=== PATIENT | female | born 1930 | race Caucasian/White ===

== ENCOUNTER → 2016-08-10 | Outpatient (CLI) | payer OTHER ==
--- NOTE | 2016-08-10 13:25 | MA ---
Screening Digital Mammogram With iCAD Analysis Clinical Indications: Routine screening. A sister was diagnosed with breast cancer in her 60s. The pa tient has had left breast cancer treated with lumpectomy. Technique: Standard cephalocaudal projections are obtained. Digital breast tomosynthesis was performe d in the MLO projection with reconstruction at 1.0 mm slice thickness and composite MLO views reconst ructed. A skin marker is placed on left breast lumpectomy scar. This examination is processed by the iCAD computer aided detection system. Comparison: October 2015, August 2015, August 2014, July 2013, July 2012, July 2011, Decem 2009, June 2009. Breast density: Type B; Scattered fibroglandular densities. Findings: CAD was reviewed. No masses, suspicious calcifications or secondary signs of malignancy are seen. There has been no significant change in the appearance of either breast. Vascular calcificati ons are noted. Impression: Negative mammogram. BI-RADS 1. Recommendation: Routine mammographic screening in one year as long as physical examination is negativ [email or web address] [facility]. Negative mammography should not preclude additional workup of a clinically suspicious finding. The patient's information is entered into a reminder system with a target due date for her next mammo gram.
== END ==
LOC: FIMAGING 10:12
DX: Z12.31 Encounter for screening mammogram for malignant neoplasm of breast (principal); Z80.3 Family history of malignant neoplasm of breast; Z85.3 Personal history of malignant neoplasm of breast
CPT/HCPCS: G0202

== ENCOUNTER 2017-08-04 12:11 | Observation (INO) | payer OTHER ==
[2017-08-04] MEDS ORDERED: IOPAMIDOL (ISOVUE-300) 100 ML BTL ONE (12:22)
[2017-08-04] MEDS ORDERED: BUPIVACAINE 0.5% 30 ML SDV ONE (15:15)
[2017-08-04] MEDS ORDERED: HYDROmorphONE/DILAUDID 1 MG/ML INJ IVP PRN ×2 (15:33→15:56)
[2017-08-04] MEDS ORDERED: OXYCODONE/APAP 5/325 TAB PO PRN ×2 (15:33→15:56)
[2017-08-04] MEDS ORDERED: ONDANSETRON 4 MG/2 ML VIAL IVP PRN ×2 (15:33→15:56)
--- NOTE | 2017-08-04 15:38 | PDGENHP ---
History & Physical Chief Complaint: RIGHT LOWER QUADRANT PAIN History of Present Illness: 87-YEAR-OLD FEMALE WITH RIGHT LOWER QUADRANT PAIN OF [address] SCAN SHOWS APPENDICITIS WAS POSSIBLE EARLY PERFORATION. ADMITTED AT THIS TIME FOR LAP APPENDECTOMY. RISKS AND OPTIONS BEEN FULLY DISCUSSED SHE WISHES TO PROCEED Pertinent Past, Social, Family History: PAST MEDICAL HISTORY REVEALS NO MAJOR MEDICAL ISSUES AND NO PRIOR ABDOMINAL SURGERIES. FAMILY HISTORY NONCONTRIBUTORY. ALLERGIES NONE. MEDICATIONS LEVOTHYROXINE. REVIEW OF SYSTEMS IS NEGATIVE ON A FULL 10 POINT REVIEW OF SYSTEMS EXCEPT RELATED TO THE HPI AND HYPO THYROIDISM. SHE DOES NOT SMOKE Relevant Physical Exam: GENERAL: HEALTHY 87-YEAR-OLD FEMALE NO ACUTE DISTRESS, AFEBRILE. CHEST CLEAR. COR REGULAR RHYTHM. ABDOMEN SOFT, SLIGHTLY DISTENDED WITH BOWEL SOUNDS. TENDER IN THE RIGHT LOWER QUADRANT. EXTREMITIES FULL RANGE OF MOTION, FULL PULSES Cardiorespiratory Assessment: IMPRESSION ACUTE APPENDICITIS. PLAN LAP APPY/ RISKS AND OPTIONS FULLY DISCUSSED
[2017-08-04] MEDS ORDERED: ERTAPENEM 1 GM VIAL IV ONE (15:44)
[2017-08-04] MEDS ORDERED: D5W 1/2 NS W/ 20 KCl/L 1,000 ML IV SCH (15:45)
[2017-08-04] MEDS ORDERED: ACETAMINOPHEN 500 MG TAB PO PRN (15:56)
[2017-08-04] MEDS ORDERED: ALBUTEROL 3 ML DEYVIAL IH PRN (15:56)
[2017-08-04] MEDS ORDERED: NALOXONE HCL 0.4 MG/ML INJ IVP PRN (15:56)
--- NOTE | 2017-08-04 15:56 | PDANEPAE ---
ANE History of Present Illness Lap Appendectomy ANE Past Medical History - Cardiovascular History Hx Hypertension: Yes Hx Arrhythmias: No Hx Coronary Artery / Peripheral Vascular Disease: No Hx CHF / Valvular Disease: No - Pulmonary History Hx COPD: No Hx Asthma/Reactive Airway Disease: No Hx Recent Upper Respiratory Infection: No Hx Oxygen in Use at Home: No Hx Sleep Apnea: No Pulmonary History Comment: GETS COUGH WITH SENSITIVITY TO PERFUMES AND WIND - Neurologic History Hx Cerebrovascular Accident: No Hx Seizures: No Hx Dementia: No - Endocrine History Hx Diabetes: No Endocrine History Comment: HYPOTHYROID ON LEVOXYL - Renal History Hx Renal Disorders: No - Liver History Hx Hepatic Disorders: No - Neurological & Psychiatric Hx Hx Neurological and Psychiatric Disorders: No - Cancer History Hx Cancer: Yes Cancer History Comment: 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 R & L bunionectomy ANE Review of Systems Review of Systems: ANE Patient History - Allergies Allergies/Adverse Reactions: No Known Allergies Allergy (Verified 08/21/15 12:55) - Home Medications Home Medications: Acetamn/Diphenhydramine 500/25 [Tylenol PM (*)] 1 each PO HS PRN 02/26/14 [Last Taken Unknown] Aspirin [Aspirin 81mg (OTC)] 81 mg PO DAILY 02/26/14 [Last Taken Unknown] Calcium Carbonate/Vitamin D3 [CALCIUM 600 + VIT D TABLET] 2 each PO DAILY [Last Taken Unknown] Cholecalciferol Vit D3 [Vitamin D3 (OTC)] 1,000 units PO DAILY 02/26/14 [Last Taken Unknown] Glucosamine Sulfate Dipot Chlr [Glucosamine] 1,000 mg PO DAILY 02/26/14 [Last Taken Unknown] Herbals/Supplements -Info Only 1 ea PO DAILY 02/26/14 [Last Taken Unknown] Levothyroxine [Synthroid 50 mcg (*)] 50 mcg PO DAILY@06 02/26/14 [Last Taken Unknown] MAGNESIUM [Magnesium Oxide 200 mg] 1 tab PO DAILY 02/26/14 [Last Taken Unknown] Multivitamins [Tab-A-Romelia] 1 each PO DAILY 02/26/14 [Last Taken Unknown] [place]-3 Fatty Acids/Fish Oil [Fish Oil 1,000 mg Capsule] 1 each PO DAILY [Last Taken Unknown] Omeprazole [Prilosec 20 mg] 20 mg PO DAILY@18 02/26/14 [Last Taken Unknown] Triamterene/Hctz 37.5/25 [Dyazide 37.5/25 (*)] 1 each PO DAILY 02/26/14 [Last Taken Unknown] Vitamin B Complex [B Complex] 0.5 each PO DAILY 02/26/14 [Last Taken Unknown] Zolpidem Tartrate [Ambien 5MG (*)] 2.5 mg PO HS PRN 02/26/14 [Last Taken Unknown ] - Smoking Hx Smoking Status: Never smoked ANE Physical Exam - Airway Neck exam: FROM Mallampati Score: Class 2 Mouth exam: normal dental/mouth exam - Pulmonary Pulmonary: clear to auscultation - Cardiovascular Cardiovascular: regular rate and rhythym - ASA Status ASA Status: II ANE Anesthesia Plan Anesthesia Plan: general endotracheal anesthesia
[2017-08-04] MEDS ORDERED: ceFAZolin 1 GM/5 ML SYR ONE (16:01)
[2017-08-04] MEDS ORDERED: HEPARIN 1000 UNIT/1 ML MDV ONE (16:01)
[2017-08-04] MEDS ORDERED: LR 1,000 ML IV ONE (16:04)
[2017-08-04] MEDS ORDERED: MIDAZOLAM 2 MG/2 ML VIAL IVP ONE (16:07)
[2017-08-04] MEDS ORDERED: fentaNYL 100 MCG/2 ML INJ ONE ×2 (16:12→18:04)
[2017-08-04] MEDS ORDERED: ROCURONIUM 50 MG/5 ML VIAL ONE (16:15)
[2017-08-04] MEDS ORDERED: LIDOCAINE 2% 5 ML SDV ONE (16:15)
[2017-08-04] MEDS ORDERED: PROPOFOL 200 MG/20 ML VIAL ONE (16:15)
[2017-08-04] MEDS ORDERED: ONDANSETRON 4 MG/2 ML VIAL ONE (17:06)
[2017-08-04] MEDS ORDERED: DEXAMETHASONE 4 MG/ML VIAL ONE (17:06)
[2017-08-04] MEDS ORDERED: SUGAMMADEX SODIUM 200 MG/2 ML VIAL IVP ONE (17:22)
--- NOTE | 2017-08-04 17:34 | POSTOPPROG ---
Post Op Note Date of Operation: 08/04/17 Surgeon: Ramone House Anesthesiologist: JENAE Anesthesia: GET(General Endotracheal) Pre-op Diagnosis: ACUTE APPENDICITIS Post-op Diagnosis: PERFORATED APPENDIX Indication: PAIN Procedure: LAP APPE AND RESECTION OF ABSCESS Findings: ACUTE APPE PERFORATED INTO ITS MESENTERY Inf/Abcess present in the surg proc area at time of surgery?: Yes Depth: Organ Space EBL: Minimal Complications: 0 Specimen(s): APPENDIX
--- NOTE | 2017-08-04 17:35 | POSTANESTH ---
Post Anesthetic Evaluation Cardiovascular Status: Normal, Stable Respiratory Status: Normal, Stable Level of Consciousness/Mental Status: Moderately Sleepy Pain Control: Adequate, Prn Tx Ordered Nausea/Vomiting Control: Adequate, Prn Tx Ordered Complications Possibly Related to Anesthesia: None Noted
[2017-08-04] MEDS ORDERED: HYDROmorphONE/DILAUDID 1 MG/ML INJ ONE (18:05)
[2017-08-04] MEDS: fentaNYL 100 MCG/2 ML INJ IVP PRN ×2 (18:06→18:12)
[2017-08-04] MEDS ORDERED: LABETALOL HCL 5 MG/ML 20 ML MDV ONE (18:31)
[2017-08-04] MEDS ORDERED: LABETALOL HCL 5 MG/ML 20 ML MDV IVP ONE (18:45)
[2017-08-04] MEDS: KETOROLAC 15 MG/1 ML SDV IVP SCH ×2 (20:10→23:18)
--- NOTE | 2017-08-05 01:34 | GOP ---
[f rep st] OPERATIVE REPORT DATE OF OPERATION: 08/04/2017 SURGEON: Ramone House MD RN MEDICAL INPATIENT SERVICES: There was no equal opportunity assistant. ANESTHESIOLOGIST: Dr. De Oliveira. PREOPERATIVE DIAGNOSIS: Acute appendicitis. POSTOPERATIVE DIAGNOSIS: Acute perforated appendicitis. PROCEDURE PERFORMED: lap appe and resection of abscess FINDINGS: The patient was found to have a thickened appendix that had perforated into its own mesentery, but with no intraabdominal spillage. DESCRIPTION OF PROCEDURE: The patient was taken to the operating room where she received satisfactory general endotracheal anesthesia by Dr. De Oliveira. She was placed in supine position, prepped and draped in usual sterile fashion. An infraumbilical incision was made. Dissection was carried down through subcutaneous tissue. A Veress needle was inserted. Pneumoperitoneum was established. Trocar was introduced. Laparoscope introduced. Good visualization was obtained. Two other trocars were placed in the lower abdomen under direct vision. The appendix was seen, it was quite thickened and curled up in a retrocecal position. This was freed up by dividing the lateral peritoneal reflection. The mesoappendix was divided with the Harmonic Scalpel. The appendix was dissected away from the wall of the cecum, containing the abscess in the mesentery. The base was skeletonized and then divided with Endo-KYMBERLY stapler. The specimen was placed in a specimen bag and extracted through the upper midline port site. Wound was irrigated. Hemostasis was assured. Trocars removed under direct vision. Trocar sites were closed with 0 Vicryl for the fascia, 4-0 Monocryl subcuticular stitch for the skin. All layers infiltrated with 0.5% Marcaine. Blood loss was negligible. No complications. Taken to recovery room in good condition. /[id number]/MODL MTDD
[2017-08-05 05:10] VITALS: PULSE 75
[2017-08-05] MEDS: KETOROLAC 15 MG/1 ML SDV IVP SCH (05:10)
[2017-08-05 08:31] VITALS: BP 116/54; RESP 18; TEMP 98.3; O2SAT 95
[2017-08-05] MEDS ORDERED: ERTAPENEM 1 GM VIAL IV SCH (09:00)
--- NOTE | 2017-08-05 09:43 | SOAPPROG ---
SOAP Progress Note Assessment/Plan: Assessment: afebrile/ doing great/ eating ok/ abd soft/ wounds ok Plan:home 08/05/17 09:42 Objective: Vital Signs Temp Pulse Resp BP Pulse Ox 36.8 C 75 18 116/54 L 95 08/05/17 08:00 08/05/17 08:00 08/05/17 08:00 08/05/17 08:00 08/05/17 08:00 08/04/17 08/05/17 08/06/17 05:59 05:59 05:59 Intake Total 1070 Output Total 1053 200 Balance 17 -200 ICD10 Worksheet Patient Problems: Problems Problem Status Onset Total knee replacement status Acute
--- NOTE | 2017-08-05 10:44 | ASMTLACE ---
GAIL Length of stay for Answers: 1 day current admission Acuity / Level of Answers: No Care: Did the patient have an inpatient admission? # of Emergency department Answers: 0 visits in the last 6 months Score: 1 Date Signed: 08/05/2017 10:43 AM Electronically Signed By:Gudelia Dugan RN
--- NOTE | 2017-08-05 10:46 | ASMTCMCOM ---
CM Note CM Note Notes: Spoke w/RN, pt will dc home w/support of family. CM available for any changes. DC Plan: Independent Date Signed: 08/05/2017 10:45 AM Electronically Signed By:Gudelia Dugan RN
--- NOTE | 2017-08-05 17:36 | ASDISCHSUM ---
Discharge Information Plan Status:Home with No Needs Medically Cleared to Leave: Discharge Date:08/05/2017 11:32 AM CM D/C Disposition:Home, Routine, Self-Care ADT D/C Disposition:Home, Routine, Self-Care Projected Discharge Date:08/05/2017 11:32 AM Transportation at D/C: Discharge Delay Reason: Follow-Up Date:08/05/2017 11:32 AM Discharge Slot: Final Diagnosis: Placement Information Patient Contact Information Contact Name:CECILIA Relationship: Address:[address] Work Phone: City:[facility] Phone: [facility]/Zip Code:[place] [address] Email: Financial Information Financial Class: Primary Plan Desc:MEDICARE OUTPATIENT Primary Plan Number:[id number] Secondary Plan Desc:NEVAEH Secondary Plan Number:[id number] Assessment Information LACE LACE Length of stay for Answers: 1 day current admission Acuity / Level of Answers: No Care: Did the patient have an inpatient admission? # of Emergency department Answers: 0 visits in the last 6 months Score: 1 Date Signed: 08/05/2017 10:43 AM Electronically Signed By:Gudelia Dugan RN [facility] Progress Note CM Note CM Note Notes: Spoke w/RN, pt will dc home w/support of family. CM available for any changes. DC Plan: Independent Date Signed: 08/05/2017 10:45 AM Electronically Signed By:Gudelia Dugan RN Intervention Information
== END 2017-08-05 11:32 | disposition home or self-care (01) ==
LOC: FIMAGING 12:11 → F3E 15:29
PROVIDERS: ADMIT Surgery; ATTEND Surgery
PROC: 0DTJ4ZZ Resection of Appendix, Percutaneous Endoscopic Approach (ICD-10-PCS; principal; 2017-08-04 16:30)
DX: K35.2 Acute appendicitis with generalized peritonitis (principal); E03.9 Hypothyroidism, unspecified; I10 Essential (primary) hypertension
CPT/HCPCS: 44970; 74177; 88304; J1100; J1170; J1335; J1885; J2250; J2405; J2704; J3010; J3490; Q9967

== ENCOUNTER → 2017-09-01 | Outpatient (CLI) | payer OTHER | LOC: FIMAGING 10:09 | PROVIDERS: ATTEND Internal Medicine | DX: Z12.31 Encounter for screening mammogram for malignant neoplasm of breast (principal); Z85.3 Personal history of malignant neoplasm of breast ==

== ENCOUNTER → 2017-10-14 | Outpatient (CLI) | payer OTHER | LOC: BMCIMAGING 10:56 | PROVIDERS: ATTEND Internal Medicine | DX: M25.512 Pain in left shoulder (principal) ==

== ENCOUNTER → 2018-09-06 | Outpatient (CLI) | payer OTHER | LOC: FIMAGING 10:33 | PROVIDERS: ATTEND Internal Medicine | DX: Z12.31 Encounter for screening mammogram for malignant neoplasm of breast (principal); Z80.3 Family history of malignant neoplasm of breast ==

== ENCOUNTER → 2018-11-06 | Outpatient (CLI) | payer OTHER | LOC: FIMAGING 08:57 | PROVIDERS: ATTEND Internal Medicine | DX: F43.9 Reaction to severe stress, unspecified (principal); R11.0 Nausea; R63.4 Abnormal weight loss; K21.9 Gastro-esophageal reflux disease without esophagitis; K44.9 Diaphragmatic hernia without obstruction or gangrene ==